=== PATIENT | male | born 1990 ===

== ENCOUNTER 2017-06-17 18:07 | Emergency (ER) | payer OTHER ==
[2017-06-17 19:22] VITALS: TEMP 99.6; O2SAT 100
--- NOTE | 2017-06-17 20:32 | C.PDOC ---
History Of Present Illness 27 y/o male, who is a [employer] employee, presents to the ED for evaluation of throat pain and fever (Tmax 102) which began earlier today. Patient also reports right-sided lower dental pain. He took some Tylenol today with mild relief. Time Seen by Provider: 06/17/17 19:40 Chief Complaint (Nursing): Flu-like Symptoms History Per: Patient History/Exam Limitations: no limitations Onset/Duration Of Symptoms: Hrs Current Symptoms Are (Timing): Still Present Associated Symptoms: Fever, Sore Throat Additional History Per: Patient Past Medical History Reviewed: Historical Data, Nursing Documentation, Vital Signs Vital Signs: Last Vital Signs Temp 99.6 F 06/17/17 19:19 Pulse 79 06/17/17 20:39 Resp 16 06/17/17 20:39 BP 115/74 06/17/17 20:39 Pulse Ox 100 06/17/17 20:39 - Medical History PMH: No Chronic Diseases Surgical History: No Surg Hx Family History: States: Unknown Family Hx - Social History Hx Alcohol Use: No Hx Substance Use: No - Immunization History Hx Tetanus Toxoid Vaccination: No Hx Influenza Vaccination: Yes Hx Pneumococcal Vaccination: No Review Of Systems Constitutional: Positive for: Fever ENT: Positive for: Mouth Pain (right-lower dental region ), Throat Pain Physical Exam - Physical Exam Appears: Non-toxic, No Acute Distress Skin: Normal Color, Warm, Dry Head: Atraumatic, Normacephalic Eye(s): bilateral: Normal Inspection Oral Mucosa: Moist Neck: Supple Chest: Symmetrical, No Deformity, No Tenderness Cardiovascular: Rhythm Regular, No Murmur Respiratory: Normal Breath Sounds, No Rales, No Rhonchi, No Wheezing Extremity: Normal ROM, Capillary Refill (less than 2 seconds ) Neurological/Psych: Oriented x3, Normal Speech, Normal Cognition ED Course And Treatment O2 Sat by Pulse Oximetry: 100 (on RA) Pulse Ox Interpretation: Normal Medical Decision Making Medical Decision Making: Progress: Amoxicillin PO administered. Disposition Counseled Patient/Family Regarding: Diagnosis, Need For Followup, Rx Given - Disposition Disposition: HOME/ ROUTINE Disposition Time: 20:30 Condition: STABLE Additional Instructions: Please gargle with warm salty water or hydrogen peroxide diluted with water several times a day. Do not swallow. Tylenol or Motrin for pain. Take Amoxicillin as prescrbied. Follow up with your dentist and PMD in next 1-2 days. Prescriptions: Amoxicillin 500 mg PO TID #21 tablet Instructions: Pharyngitis (ED) Forms: General Discharge Instructions, [facility] (Gambian), Work Excuse - Clinical Impression Clinical Impression: Pharyngitis
[2017-06-17 20:39] VITALS: BP 115/74; PULSE 79; RESP 16
== END 2017-06-17 20:39 | disposition home or self-care (01) ==
LOC: C.ER 18:07
DX: J02.9 Acute pharyngitis, unspecified (principal)